=== PATIENT | male | born 1995 | race Hispanic/Latino ===

== ENCOUNTER 2024-03-23 15:37 | Emergency (ER) | payer BC ==
[~2024-03-23] VITALS: Ht 172.7 cm; Wt 108.9 kg
[2024-03-23 15:51] VITALS: BP 152/87; PULSE 88; RESP 18
[2024-03-23] MEDS ORDERED: CLIN-141 PO (17:16)
[2024-03-23] MEDS ORDERED: DIPH50 PO (17:16)
[2024-03-23] MEDS: CLINDAMYCIN 150 MG CAP PO ONE (18:38)
[2024-03-23] MEDS: DIPHENHYDRAMINE HCL 25 MG CAPSULE PO STA (18:38)
== END 2024-03-23 19:03 | disposition home or self-care (01) ==
LOC: EDH 15:37
DX: S90.862A Insect bite (nonvenomous), left foot, initial encounter (principal); W57.XXXA Bitten or stung by nonvenomous insect and other nonvenomous arthropods, initial encounter